=== PATIENT | female | born 1950 | race Caucasian/White ===

== ENCOUNTER 2021-11-09 08:50 | Day surgery (SDC) | payer BC ==
[~2021-11-09 08:50] MED LIST: Acetaminophen 325 MG Tab PO SCH; Lactated Ringers 1,000 ML IV SCH; Lidocaine 1%/Sod Bicarbonate in NS 8.4% 1 ML Syringe IDERM PRN; Morphine 8 MG, EPINEPHrine 0.3 MG, Cefuroxime 750 MG, Ketorolac 30 MG, Sodium Chloride ... PRN; Pregabalin 25 MG Cap PO SCH; Sodium Chloride 0.9% 10 ML Syringe FLUSH PRN; Sodium Chloride 0.9% 10 ML Syringe FLUSH SCH; oxyCODONE ER 10 MG TAB.ER PO SCH
[2021-11-09] MEDS ORDERED: Ropivacaine 0.5% 5 MG/ML 30 ML SDV ONE (10:26)
[2021-11-09] MEDS ORDERED: EPINEPHrine 1 MG/ML SDV ONE (10:26)
[2021-11-09] MEDS ORDERED: Propofol 200 MG/20 ML SDV ONE ×2 (10:42→12:34)
[2021-11-09] MEDS ORDERED: fentaNYL 100 MCG/2 ML SDV ONE (10:42)
[2021-11-09] MEDS ORDERED: Midazolam 1 MG/ML 2 ML SDV ONE (10:43)
[2021-11-09] MEDS ORDERED: ceFAZolin 1 GM Vial ONE (10:44)
[2021-11-09] MEDS ORDERED: Vancomycin 1 GM SDV ONE (11:03)
[2021-11-09] MEDS ORDERED: Lactated Ringers 1,000 ML ONE (11:46)
[2021-11-09] MEDS ORDERED: ePHEDrine 50 MG/ML SDV ONE (12:19)
== END 2021-11-09 15:55 | disposition home or self-care (01) ==
LOC: JD.SDS 08:50
PROVIDERS: ATTEND Orthopaedic Surgery
DX: M17.12 Unilateral primary osteoarthritis, left knee (principal); Z79.899 Other long term (current) drug therapy; Z98.890 Other specified postprocedural states; E66.9 Obesity, unspecified
CPT/HCPCS: 27447; 73560; 97110; 97116; 97161; A9270; C1713; C1776; J0171; J0690; J0697; J1885; J2250; J2270; J2370; J2704; J2795; J3370; J7120; 64450; 76942; 99100; J3010